=== PATIENT | female | born 1980 | race Caucasian/White ===

== ENCOUNTER 2017-05-13 05:33 | Emergency (ER) | payer OTHER ==
[~2017-05-13] VITALS: Ht 175.3 cm; Wt 127.0 kg
== END 2017-05-13 06:36 | disposition home or self-care (01) ==
LOC: ER 05:33
DX: R07.89 Other chest pain (principal)
CPT/HCPCS: 71046; 93005; 93010; 99284

== ENCOUNTER 2018-06-05 14:00 | Day surgery (SDC) | payer OTHER ==
[~2018-06-05] VITALS: Ht 175.3 cm; Wt 125.6 kg
--- NOTE | 2018-06-05 15:08 | NUR ---
06/05/18 1508 Shanthi Willis 1506- DR KEBEDE PRESENTED TO THE PRE OP AREA TO INJECT MARCAINE 0.5% WITH EPI 1:200,000 INTO R WRIST. PT TOLERATED WELL. O2 REMAINED STABLE. VERSED 2MG IV WAS GIVEN PRIOR TO INJECTION.
== END 2018-06-05 16:00 | disposition home or self-care (01) ==
LOC: ORSCSDS 14:00
PROVIDERS: Orthopaedic Surgery
PROC: 01N54ZZ Release Median Nerve, Percutaneous Endoscopic Approach (ICD-10-PCS; principal; 2018-06-05 15:15)
DX: G56.01 Carpal tunnel syndrome, right upper limb (principal); E66.01 Morbid (severe) obesity due to excess calories; Z68.41 Body mass index [BMI] 40.0-44.9, adult
CPT/HCPCS: J0690; J2250; J3010; J7120

== ENCOUNTER 2019-02-05 13:07 | Day surgery (SDC) | payer OTHER ==
[~2019-02-05] VITALS: Ht 175.3 cm; Wt 120.3 kg
--- NOTE | 2019-02-05 13:46 | NUR ---
02/05/19 6399 Luis Gonzalez CALL LIGHT WITHIN REACH
== END 2019-02-05 16:00 | disposition home or self-care (01) ==
LOC: ORSCSDS 13:07
PROVIDERS: Orthopaedic Surgery
PROC: 01N54ZZ Release Median Nerve, Percutaneous Endoscopic Approach (ICD-10-PCS; principal; 2019-02-05 15:15)
DX: G56.02 Carpal tunnel syndrome, left upper limb (principal)
CPT/HCPCS: J0690; J2250; J7120

== ENCOUNTER → 2021-02-02 | Outpatient (CLI) | payer BC | END | disposition home or self-care (01) | LOC: LAB SHORT 13:40 | DX: N92.0 Excessive and frequent menstruation with regular cycle (principal) | CPT/HCPCS: 88305 ==

== ENCOUNTER 2021-05-08 08:00 | Day surgery (SDC) | payer BC ==
[~2021-05-08] VITALS: Ht 175.3 cm; Wt 112.0 kg
[2021-05-08] MEDS ORDERED: ALDACTONE100 MG PO (08:36)
[2021-05-08] MEDS ORDERED: Inderal40 MG PO (08:46)
[2021-05-08] MEDS ORDERED: MULVITA PO (08:48)
[2021-05-08] MEDS ORDERED: IRON18 MG PO (08:50)
[2021-05-08] MEDS ORDERED: POLY500 PO (08:50)
[2021-05-08] MEDS ORDERED: ERGO400 PO (08:52)
[2021-05-08] MEDS ORDERED: ZINC15 PO (08:52)
--- NOTE | 2021-05-08 09:18 | NUR ---
History, Chart, Medications and Allergies reviewed before start of procedure.Patient confirms NPO status and agrees with scheduled surgery. Pre-Op teaching done. Pt verbalizes understanding. Patient States Post-Procedure ride home has been arranged.
[2021-05-08] MEDS ORDERED: ACET500 PO (14:15)
[2021-05-08] MEDS ORDERED: DOCU100 PO (14:16)
[2021-05-08] MEDS ORDERED: IBU800 MG PO (14:17)
[2021-05-08] MEDS ORDERED: OXAYDO5 M1 PO (14:18)
--- NOTE | 2021-05-08 16:24 | NUR ---
SHIFT SUMMARY POD 0 LAVH, A/O X4, VSS, TOLERATING PO, AMBULATING INDEPENDENTLY, PAIN MANAGED WITH ONLY TYLENOL (SEE EMAR). REPORTED NEEDING TO VOID WHEN ARRIVING BACK FROM PACU, PT WAS ABLE TO GET UP ABOUT 20 MINUTES AFTER ARRIVAL BUT WAS ONLY ABLE TO GET A SMALL AMOUT OUT, PT HAD MCGUIRE IN WHILE IN OR. PT WAS ABLE TO VOID AND FELT EMPTY PER HER REPORT APPROXIMATLY 2 HOURS AFTER ARRIVING TO THE FLOOR. NO ACUTE EVENTS THIS SHIFT, IV ACCESS REMOVED AND NO OTHER IV ACCESS DEVICES FOUND TO BE IN PLACE AT TIME OF DISCHARGE. DISCUSSED HOME CARE AND FOLLOW UP APPOINTMENTS, PER PT REPORT SHE HAD PREVIOUSLY RECEIVED POST OP PRESCRIPTIONS. DENIES QUESTIONS AT THIS TIME, ESCORTED PT OUT VIA WC TO GO HOME VIA PRIVATE AUTO.
== END 2021-05-08 15:14 | disposition home or self-care (01) ==
LOC: ORSCMMR 08:00 → ORD 09:30 → SURS 12:19 → ORSCMMR 15:14
PROVIDERS: Obstetrics & Gynecology
PROC: 0UT9FZZ Resection of Uterus, Via Natural or Artificial Opening With Percutaneous Endoscopic Assistance (ICD-10-PCS; principal; 2021-05-08 09:30)
PROC: 0UT6FZZ Resection of Left Fallopian Tube, Via Natural or Artificial Opening With Percutaneous Endoscopic Assistance (ICD-10-PCS; principal; 2021-05-08 09:30)
DX: N92.1 Excessive and frequent menstruation with irregular cycle (principal); E28.2 Polycystic ovarian syndrome; F41.9 Anxiety disorder, unspecified; Z79.899 Other long term (current) drug therapy; E66.9 Obesity, unspecified; Z68.36 Body mass index [BMI] 36.0-36.9, adult
CPT/HCPCS: 88307; A9270; J0171; J0690; J1100; J1885; J2250; J2370; J2405; J2704; J3010; J7120

== ENCOUNTER → 2022-08-30 | Outpatient (CLI) | payer BC ==
[~2022-08-30] MED LIST: ACET500 PO; ALDACTONE100 MG PO; DOCU100 PO; ERGO400 PO; IBU800 MG PO; IRON18 MG PO; Inderal40 MG PO; MULVITA PO; OXAYDO5 M1 PO; POLY500 PO; ZINC15 PO
[2022-08-31 11:35] LABS: Candida species (DNA Probe) Positive (NEGATIVE); G. vaginalis (DNA Probe) Positive (NEGATIVE); T. vaginalis (DNA Probe) Negative (NEGATIVE)
== END | disposition home or self-care (01) ==
LOC: LAB SHORT 18:12 → LAB 18:12
PROVIDERS: Family Medicine
DX: N76.0 Acute vaginitis (principal)
CPT/HCPCS: 87480; 87510; 87660

== ENCOUNTER 2024-03-12 06:12 | Day surgery (SDC) | payer BC ==
[~2024-03-12] VITALS: Ht 175.3 cm; Wt 121.2 kg
[2024-03-12] MEDS ORDERED: Lactated Ringer's 1,000 ML IV ONE ×2 (06:26→06:51)
[2024-03-12] MEDS ORDERED: propofoL 20 ML IV ONE (06:50)
[2024-03-12] MEDS ORDERED: Bupivacaine 0.5% W/EPI 1:200000 SDV 30 ML Vial ONE (06:52)
[2024-03-12] MEDS ORDERED: FentaNYL Citrate 50 MCG/ML 2 ML Injection ONE ×3 (06:52→08:45)
[2024-03-12] MEDS ORDERED: Midazolam HCl 1MG / ML 2ML Vial ONE (06:53)
[2024-03-12] MEDS ORDERED: Sugammadex Sodium 200 MG/2ML SDV (100 MG/ML) ONE (07:55)
[2024-03-12] MEDS ORDERED: Labetalol HCL 5 MG/ML 4ML Injection (Single Dose) ONE (07:57)
[2024-03-12] MEDS ORDERED: Ondansetron HCl 2 MG / ML 2ML Vial ONE ×3 (09:15→10:28)
--- NOTE | 2024-03-12 09:20 | NUR ---
03/12/24 0920 Rosa Mccracken/Evelyn AT [phone]
[2024-03-12] MEDS ORDERED: OxyCODONE 5 mg/Acetamin 325 mg TABLET ONE (09:49)
[2024-03-12] MEDS ORDERED: Estradiol 0.1 MG/24 HR Patch TOP ONE (09:50)
--- NOTE | 2024-03-12 10:09 | NUR ---
03/12/24 1009 Blaire Membreno PT C/O NAUSEA, GIVEN 4MG ZOFRAN IV PUSH APPROX. 0920.
[2024-03-12 10:47] VITALS: BP 126/68
== END 2024-03-12 11:03 | disposition home or self-care (01) ==
LOC: ORSCSDS 06:12
PROVIDERS: Obstetrics & Gynecology
PROC: 0UT14ZZ Resection of Left Ovary, Percutaneous Endoscopic Approach (ICD-10-PCS; principal; 2024-03-12 07:30)
DX: D27.1 Benign neoplasm of left ovary (principal); E28.2 Polycystic ovarian syndrome; N73.6 Female pelvic peritoneal adhesions (postinfective); Z79.899 Other long term (current) drug therapy; F41.8 Other specified anxiety disorders; L68.0 Hirsutism; E66.9 Obesity, unspecified; Z68.39 Body mass index [BMI] 39.0-39.9, adult
CPT/HCPCS: 88305; 88342; A9270; J2250; J2405; J2704; J3010; J7120

== ENCOUNTER 2024-03-12 16:36 | Emergency (ER) | payer BC ==
[~2024-03-12] VITALS: Ht 175.3 cm; Wt 117.9 kg
[2024-03-12 17:26] LABS: Source, Urine Clean Catch
[2024-03-12] MEDS ORDERED: NS 1,000 ML IV SCH (17:40)
[2024-03-12 17:45] LABS: BASOPHILS ABSOLUTE AUTO 0.07 K/mm3 (0.00-0.23); BASOPHILS PERCENT AUTO 0 % (0-2); EOSINOPHILS PERCENT AUTO 0 % (0-6); Hematocrit 37.2 % (33.0-51.0); Hemoglobin 12.7 g/dL (11.5-16.0); IMMATURE GRAN ABSOLUTE AUTO 0.29 K/mm3 (0.00-0.10); IMMATURE GRAN PERCENT AUTO 1 % (0-1); LYMPHOCYTES ABSOLUTE AUTO 1.41 K/mm3 (0.84-5.20); LYMPHOCYTES PERCENT AUTO 6 % (21-46); MONOCYTES PERCENT AUTO 1 % (4-13); Mean Corpuscular HGB 31.4 pg (26.0-34.0); Mean Corpuscular HGB Conc 34.1 g/dL (31.5-36.5); Mean Corpuscular Volume 92 fL (80-100); Mean Platelet Volume 9.9 fL (9.1-12.4); NEUTROPHILS PERCENT AUTO 91 % (41-73); Platelet Count 578 K/mm3 (150-400); RDW Coefficient Variation 12.2 % (11.7-14.2); RDW Standard Deviation 41.1 fL (35.1-46.3); Red Blood Cell Count 4.04 M/mm3 (3.80-5.20); White Blood Cell Count 22.97 K/mm3 (4.00-11.30)
[2024-03-12 18:01] LABS: Appearance, Urine Hazy (Clear); Bilirubin, Urine Neg (Neg); Blood, Urine 5+ (Neg); Color, Urine Yellow (P-Yellow); Glucose Qualitative, Urine Neg (Neg); Ketones, Urine 1+ (Neg); Leukocyte Esterase, Urine Neg (Neg); Nitrite, Urine Neg (Neg); Protein, Urine 2+ (Neg); Specific Gravity, Urine 1.025 (1.003-1.022); Urobilinogen, Urine NORM (Normal)
[2024-03-12 18:03] LABS: Albumin/Globulin Ratio 1.1 (0.8-1.8); Bilirubin, Total 0.7 mg/dL (0.1-1.0); Bun/Creatinine Ratio 19.1 (12.0-20.0); Calcium, Blood 9.3 mg/dL (8.5-10.1); Creatinine, Blood 0.89 mg/dL (0.40-1.00); Globulin, Blood 3.5 g/dL (2.2-4.0); Potassium, Blood 4.3 mmol/L (3.5-5.5); Total Protein, Blood 7.5 g/dL (6.4-8.2)
[2024-03-12 18:13] LABS: Bacteria Few /hpf; Mucus Light (0-Heavy); Red Blood Cells, Urine 25-50 /hpf (0-2); Squamous Epithelial Cells Rare /hpf (Few); White Blood Cells, Urine 0-2 /hpf (0-5)
[2024-03-12 21:15] VITALS: BP 111/84
== END 2024-03-12 21:40 | disposition home or self-care (01) ==
LOC: ER 16:36
PROVIDERS: Student in an Organized Health Care Education/Training Program
DX: R06.02 Shortness of breath (principal); R55 Syncope and collapse; Z87.891 Personal history of nicotine dependence; Z79.899 Other long term (current) drug therapy
CPT/HCPCS: 71045; 71260; 74177; 80053; 81001; 85025; 86850; 86900; 86901; 93005; 93010; 96360-59; 99284-25; J7030; Q9967

== ENCOUNTER → 2024-05-07 | Outpatient (CLI) | payer BC ==
[2024-05-07 20:19] LABS: Candida Group, PCR NOT DETECTED (NOT DETECT); Candida glabrata-krusei, PCR NOT DETECTED (NOT DETECT)
[2024-05-08 01:20] LABS: Bacterial Vaginosis PCR Positive (NEGATIVE)
== END ==
LOC: LAB 18:10 → LAB SHORT 18:10
PROVIDERS: Family Medicine
DX: N76.0 Acute vaginitis (principal)
CPT/HCPCS: 81515

== ENCOUNTER → 2024-06-04 | Outpatient (CLI) | payer BC ==
[2024-06-04 15:53] LABS: Bacterial Vaginosis PCR Negative (NEGATIVE); Candida Group, PCR NOT DETECTED (NOT DETECT); Candida glabrata-krusei, PCR NOT DETECTED (NOT DETECT)
== END ==
LOC: LAB SHORT 12:00 → LAB 12:00
PROVIDERS: Family Medicine
DX: N76.0 Acute vaginitis (principal)
CPT/HCPCS: 81515